=== PATIENT | female | born 1965 | race Caucasian/White ===

== ENCOUNTER 2018-04-05 20:12 | Emergency (ER) | payer SELFPAY ==
[2018-04-05 20:38] VITALS: BP 134/89; PULSE 64; RESP 18; TEMP 98.5; O2SAT 100
[2018-04-05] MEDS ORDERED: Albuterol 0.083% Inhal Sol (2.5 mg/3 mL) UD INH SCH (21:30)
[2018-04-05] MEDS ORDERED: Apap-Butalbital-Caffeine 325-50-40mg Tab PO STA (21:35)
[2018-04-05] MEDS ORDERED: Albuterol 0.083% Inhal Sol (2.5 mg/3 mL) UD ONE (21:38)
[2018-04-05] MEDS ORDERED: Apap-Butalbital-Caffeine 325-50-40mg Tab ONE (21:48)
--- NOTE | 2018-04-05 22:26 | C.PDOC ---
History Of Present Illness 52 year old female with a history of migraine headaches presents to the emergency department with complaints of recurring intermittent headaches for the past week. Patient states that she took Tylenol with no relief. Patient reports that her headache feels the same constantly and does not worsen. Patient confirms nausea but denies vomiting, neck pain, or dizziness. Time Seen by Provider: 04/05/18 21:08 Chief Complaint (Nursing): Headache History Per: Patient History/Exam Limitations: no limitations Onset/Duration Of Symptoms: Days (7) Current Symptoms Are (Timing): Still Present Quality: Aching Preceeding Symptoms: Known Migraine Symptoms Associated Symptoms: Nausea. denies: Vomiting, Other (dizziness) Past Medical History Reviewed: Historical Data, Nursing Documentation, Vital Signs Vital Signs: Last Vital Signs Temp 98.5 F 04/05/18 20:34 Pulse 64 04/05/18 20:34 Resp 18 04/05/18 20:34 BP 134/89 04/05/18 20:34 Pulse Ox 100 04/06/18 04:00 - Medical History PMH: Migraine Surgical History: No Surg Hx Family History: States: No Known Family Hx - Social History Hx Tobacco Use: No Hx Alcohol Use: No Hx Substance Use: No - Immunization History Hx Tetanus Toxoid Vaccination: No Hx Influenza Vaccination: No Hx Pneumococcal Vaccination: No Review Of Systems Gastrointestinal: Positive for: Nausea. Negative for: Vomiting Musculoskeletal: Negative for: Neck Pain Neurological: Negative for: Dizziness Physical Exam - Physical Exam Appears: Non-toxic, No Acute Distress Head: Atraumatic Eye(s): bilateral: Normal Inspection, PERRL, EOMI Oral Mucosa: Moist Throat: Normal, No Erythema Neck: Normal, No Midline Cervical Tenderness, No Paracervical Tenderness, Supple Cardiovascular: Rhythm Regular Respiratory: Normal Breath Sounds Extremity: Normal ROM Extremity: Bilateral: Atraumatic Neurological/Psych: Oriented x3, Normal Speech, Normal Cognition, Normal Motor, Normal Sensation Gait: Steady ED Course And Treatment O2 Sat by Pulse Oximetry: 100 (RA) Pulse Ox Interpretation: Normal Progress Note: Plan: Fioricet 2 tab PO. Zofran 4mg PO. Pt reports improved pain, NAD Reassessment Condition: Improved Disposition Counseled Patient/Family Regarding: Diagnosis, Need For Followup - Disposition Referrals: Non [facility] Provider, [Primary Care Provider] - Disposition: HOME/ ROUTINE Disposition Time: 22:24 Condition: STABLE Additional Instructions: Please follw up in clinic Take meds as directed Return to ER if worse Prescriptions: Acetaminophen/Butalbital/Caf [Fioricet] 1 tab PO TID PRN #20 tab PRN Reason: Headache Instructions: Headache, Adult (DC) Forms: [employer] (Faroese) Print Language: DUTCH - Clinical Impression Clinical Impression: 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 - Scribe Statement The provider has reviewed the documentation as recorded by the Scribe (Victorino Hopper) All medical record entries made by the Scribe were at my direction and personally dictated by me. I have reviewed the chart and agree that the record accurately reflects my personal performance of the history, physical exam, medical decision making, and the department course for this patient. I have also personally directed, reviewed, and agree with the discharge instructions and disposition.
== END 2018-04-05 22:41 | disposition home or self-care (01) ==
LOC: SUPCPDRO 20:12 → C.ER 20:12
DX: R51 Headache (principal)

== ENCOUNTER 2018-09-30 09:48 | Emergency (ER) | payer OTHER ==
[2018-09-30 10:19] VITALS: RESP 20
[2018-09-30 10:59] LABS: SQUAMOUS EPITHIAL 4 /hpf (0-5); URINE BACTERIA RARE (<OCC); URINE BILIRUBIN NEGATIVE (NEGATIVE); URINE BLOOD 1+ (NEGATIVE); URINE CLARITY Clear (Clear); URINE COLOR Yellow (YELLOW); URINE GLUCOSE (UA) NORMAL (Normal); URINE LEUKOCYTE ESTERASE 2+ Leu/uL (Negative); URINE PROTEIN NEGATIVE (NEGATIVE); URINE UROBILINOGEN NORMAL mg/dL (0.2-1.0)
--- NOTE | 2018-09-30 11:29 | C.PDOC ---
History Of Present Illness 53 y/o female, with no PMHx, presents to the ED for evaluation of right upper back pain, intermittent for 2 weeks. Pain worsens with movement. She denies recent fall or trauma. Patient admits to heavy lifting at work. Pt denies any associated chest pain, SOB, dyspnea, palpitation, abd. pain, N/V, denies abd. pain, N/V, back pain, UTi sx, denies any other active complaints. Ambulate to ED for evaluation, not in any apparent distress. Time Seen by Provider: 09/30/18 10:32 Chief Complaint (Nursing): Back Pain History Per: Patient History/Exam Limitations: no limitations Onset/Duration Of Symptoms: Days Current Symptoms Are (Timing): Still Present Associated Symptoms: None Exacerbating Factor(s): Movement Past Medical History Reviewed: Historical Data, Nursing Documentation, Vital Signs Vital Signs: Last Vital Signs Temp 98 F 09/30/18 10:16 Pulse 62 09/30/18 10:16 Resp 20 09/30/18 10:16 BP 113/74 09/30/18 10:16 Pulse Ox 100 09/30/18 10:16 - Medical History PMH: Migraine Surgical History: No Surg Hx Family History: States: No Known Family Hx - Social History Hx Tobacco Use: No Hx Alcohol Use: No Hx Substance Use: No - Immunization History Hx Tetanus Toxoid Vaccination: No Hx Influenza Vaccination: No Hx Pneumococcal Vaccination: No Review Of Systems Constitutional: Negative for: Fever Cardiovascular: Negative for: Chest Pain Respiratory: Negative for: Shortness of Breath Genitourinary: Negative for: Dysuria, Frequency Musculoskeletal: Positive for: Back Pain Neurological: Negative for: Weakness, Numbness, Incoordination, Other (tingling) Physical Exam - Physical Exam Appears: Well, Non-toxic, No Acute Distress Skin: Normal Color, Warm, No Rash, No Ecchymosis Head: Normacephalic Eye(s): bilateral: PERRL Oral Mucosa: Moist Throat: No Erythema, No Drooling Neck: Trachea Midline, No Midline Cervical Tenderness, No Paracervical Tenderness, No Step Off Deformity, Supple Chest: Symmetrical, No Deformity, No Tenderness Cardiovascular: Rhythm Regular Respiratory: No Accessory Muscle Use, No Stridor, No Wheezing Gastrointestinal/Abdominal: Soft, No Tenderness, No Distention, No Rebound Back: No CVA Tenderness, No Vertebral Tenderness, No Straight Leg Raising, Other (Right parascapular tenderness, no skin changes, no deformity) Extremity: Normal ROM, No Tenderness, No Deformity, No Swelling Neurological/Psych: Oriented x3, Normal Speech, Normal Motor, Normal Sensation, Normal Reflexes ED Course And Treatment - Laboratory Results Urine POC: Negative O2 Sat by Pulse Oximetry: 100 (RA) Pulse Ox Interpretation: Normal - Radiology CXR: Interpreted by Me, Viewed By Me CXR Interpretation: Yes: No Acute Disease Progress Note: Administered PO tramadol for pain. Urine sent to the lab. CXR taken. UA shows +leuks and WBC. Will treat with Macrobid PO for UTI. On re- eval, pt is afebrile, hemodynamicay stable. non-toxic. Tolerate Po well in ED. Neck: SUpple, (-) meningeal sign. ENT: no acute findings. Lungs: CTA B/L, BS equal B/L. CVS: (+)S1S2, reg. Abd: benign, (-) guarding, (-) rebound. Neuorlogicaly intact. CXR- normal study. UA c/w UTI. Pt has clinical findings c/w Right upper back pain , UTI. Pt advised. ref. to f/u with PMD in 2-3 days for re-eavl. return if any new changes. Reassessment Condition: Improved Disposition Counseled Patient/Family Regarding: Studies Performed, Diagnosis, Need For Followup, Rx Given - Disposition Referrals: [facility] [Outside] Disposition: HOME/ ROUTINE Disposition Time: 11:34 Condition: STABLE Additional Instructions: Avoid strenuous physical activity for 1 week take medication as prescribed Follow up with PMD in 2-3 days for re-evaluation. return to ED if any worsening or new changes. 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 - Scribe Statement The provider has reviewed the documentation as recorded by the Scribe (Isabela Roberts) All medical record entries made by the Scribe were at my direction and personally dictated by me. I have reviewed the chart and agree that the record accurately reflects my personal performance of the history, physical exam, medical decision making, and the department course for this patient. I have also personally directed, reviewed, and agree with the discharge instructions and disposition.
[2018-09-30 11:46] VITALS: BP 118/81; PULSE 49; TEMP 98.9
--- NOTE | 2018-09-30 11:50 | RAD ---
HISTORY: pain COMPARISON: Chest x-ray performed 09/30/18 TECHNIQUE: Chest PA and lateral FINDINGS: Examination limited by habitus. LUNGS: No focal consolidation. Please note that chest x-ray has limited sensitivity for the detection of pulmonary masses. PLEURA: No significant pleural effusion identified. No definite pneumothorax . CARDIOVASCULAR: The cardiomediastinal silhouette appears within normal limits of size. No atherosclerotic calcification present. OSSEOUS STRUCTURES: Degenerative changes. VISUALIZED UPPER ABDOMEN: Mild elevation of the right hemidiaphragm. OTHER FINDINGS: None. IMPRESSION: No acute pulmonary pathology identified. Findings as above.
[2018-09-30 15:08] VITALS: O2SAT 100
== END 2018-09-30 11:51 | disposition home or self-care (01) ==
LOC: C.ER 09:48
DX: S29.012A Strain of muscle and tendon of back wall of thorax, initial encounter (principal); X50.0XXA Overexertion from strenuous movement or load, initial encounter; N39.0 Urinary tract infection, site not specified